=== PATIENT | female | born 1995 | race Caucasian/White ===

== ENCOUNTER 2016-09-11 12:57 | Emergency (ER) | payer MEDICAID ==
[~2016-09-11] VITALS: Ht 160 cm; Wt 60.0 kg
[2016-09-11] MEDS ORDERED: MORPHINE SULFATE 2 MG/ML CPJ (NOT FOR IM USE) IV ONE (14:15)
[2016-09-11] MEDS ORDERED: ONDANSETRON HCL 4MG/2ML VIAL IV ONE (14:15)
[2016-09-11] MEDS ORDERED: SODIUM CHLORIDE 0.9% 1,000 ML IV ONE (14:15)
[2016-09-11 14:55] LABS: BASOPHILS % 0.2 % (0.0-2.0); EOSINOPHILS % 2.3 % (0.0-5.0); HEMATOCRIT. 41.1 % (36.0-48.0); HEMOGLOBIN. 13.8 g/dL (12.0-16.0); LYMPHOCYTES % 23.6 % (20.0-50.0); MEAN CORPUSCULAR HEMOGLOBIN 27.7 pg (28.0-32.0); MEAN CORPUSCULAR VOLUME 82.6 fL (81.0-99.0); MEAN PLATELET VOLUME 7.7 fl (7.4-10.4); MONOCYTES % 4.1 % (2.0-8.0); NEUTROPHILS % 69.8 % (40.0-76.0); PLATELET 337 x1000/uL (130-400); RED BLOOD CELL COUNT 4.98 mill/uL (4.2-5.4); RED CELL DISTRIBUTION WIDTH 12.9 % (11.6-14.6)
[2016-09-11 15:05] LABS: CARBON DIOXIDE 27 mEq/L (21-32); CHLORIDE 104 mEq/L (98-107)
[2016-09-11 15:08] LABS: HCG SCREEN NEGATIVE
[2016-09-11 17:48] VITALS: BP 144/68
== END 2016-09-11 18:06 | disposition home or self-care (01) ==
LOC: ER 13:25
DX: S09.90XA Unspecified injury of head, initial encounter (principal); F07.81 Postconcussional syndrome; R55 Syncope and collapse; F12.10 Cannabis abuse, uncomplicated; Z98.890 Other specified postprocedural states; W22.8XXA Striking against or struck by other objects, initial encounter; Y93.01 Activity, walking, marching and hiking; Y99.8 Other external cause status; Y92.89 Other specified places as the place of occurrence of the external cause
CPT/HCPCS: 36415; 70450; 80053; 83690; 84703; 85025; 93005; 96361; 96374; 96375; 99285; J2270; J2405; Z7610; J7030

== ENCOUNTER 2016-10-17 04:22 | Emergency (ER) | payer MEDICAID ==
[~2016-10-17] VITALS: Ht 152.4 cm; Wt 59.0 kg
[2016-10-17 08:34] VITALS: BP 123/75
== END 2016-10-17 09:45 | disposition home or self-care (01) ==
LOC: ER 04:22
DX: N60.01 Solitary cyst of right breast (principal); F12.10 Cannabis abuse, uncomplicated; Z98.890 Other specified postprocedural states
CPT/HCPCS: 99283

== ENCOUNTER 2017-01-13 06:57 | Emergency (ER) | payer MEDICAID ==
[~2017-01-13] VITALS: Ht 152.4 cm; Wt 54.4 kg
[2017-01-13 07:38] VITALS: BP 129/66
[2017-01-13] MEDS ORDERED: IBUPROFEN 600MG TABLET PO ONE (08:30)
== END 2017-01-13 09:06 | disposition home or self-care (01) ==
LOC: ER 06:57
DX: R51 Headache (principal); F17.200 Nicotine dependence, unspecified, uncomplicated; F12.10 Cannabis abuse, uncomplicated; Y04.0XXA Assault by unarmed brawl or fight, initial encounter; Y93.89 Activity, other specified; Y92.89 Other specified places as the place of occurrence of the external cause; Y99.8 Other external cause status
CPT/HCPCS: 99283